=== PATIENT | female | born 1965 | race Two or more races ===

== ENCOUNTER → 2017-01-29 | Day surgery (SDC) | payer MEDICARE, MEDICAID ==
[~2017-01-29] VITALS: Ht 160 cm; Wt 77.2 kg
[~2017-01-29] MED LIST: CYCLOPENTOLATE HCL 1% OPHT SOLN 2 ML BTL ONE; DICY10CA12 PO; DIFL0.0512 RIGHT EYE; EPINEPHrine-Lidocaine/BSS (PF/SF) 4-120 mg/16 mL OPTH SYR RIGHT EYE ONE; HYALURONIDASE/LIDOCAINE/EPINEPHRINE/BUPIVACAINE 6 ML SYR ONE; MECL-62 PO; MEXI150C PO; OMEP20TA PO; PHENYLEPHRINE HCL 10% OPTH SOLN 5 ML BTL ONE; PROPOFOL 200 MG/20 ML AMP IV ONE; PROPOFOL 200 MG/20 ML AMP ONE; SODIUM CHLORID 0.9% 500 ML INJ 500 ML ONE; SOMA350T PO; TETRACAINE 0.5% OPTH SOLN 4 ML BTL RIGHT EYE ONE; TOBRAMYCIN/DEXAMETHASONE OPTH OINT 3.5 GM TUBE RIGHT EYE ONE; TRAM50TA PO; TROPICAMIDE 1% OPHT SOLN 15 ML BTL ONE; VIGA0.5D RIGHT EYE; VISCOAT OPHT IRRIG SOLN 0.75 ML SYRINGE LEFT EYE ONE; VISCOAT OPHT IRRIG SOLN 0.75 ML SYRINGE RIGHT EYE ONE; acetaZOLAMIDE SEQUELS 500 MG SUSTAINED RELEASE CAP ONE
[2017-01-29 06:54] VITALS: BP 101/66; PULSE 69; RESP 16; TEMP 97.8; O2SAT 98
[2017-01-29 07:00] VITALS: PULSE 69
[2017-01-29 08:05] VITALS: PULSE 62
[2017-01-29 09:30] VITALS: TEMP 97.1
[2017-01-29 10:05] VITALS: BP 129/76; PULSE 71; RESP 14; O2SAT 99
--- NOTE | 2017-01-29 10:51 | PD.OP ---
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 She was prepped and draped in the usual sterile fashion for ophthalmic surgery. A wire lid speculum was placed in the right eye. A paracentesis incision was created at the 11 o'clock position on the limbus. Vision blue dye, epishugarcaine, and viscoelastic was injected into the anterior chamber. The main incision was created at the 8 o'clock position on the limbus with a 2.4 mm keratome. A continuous curvilinear capsulorrhexis was made on the anterior lens capsule. Hydrodissection was used to separate the lens from the capsule. Phacoemulsification was used to remove the lens nucleus material. A posterior rent was noted at this time. Anterior vitrectomy was performed. Irrigation and aspiration was used to remove the remaining cortical material. The lens implant ([id number] 17.0 D SN [id number]) was placed in the sulcus. Viscoelastic was removed with irrigation and aspiration. The incisions were irrigated and found to be watertight. 10-0 nylon suture was used to close the main incision. Tobradex ointment, a patch, and shield were placed on the right eye. The patient was sent to PACU in stable condition. Diamox 500 mg CR given after the procedure. Callie Mccartney MD Jan 29, 2017 10:51
--- NOTE | 2017-01-30 14:02 | EKG ---
Date Performed: 01/29/2017 Time Performed: 07:28:44 PTAGE: 51 years EKG: Sinus rhythm . Normal ECG NO PREVIOUS TRACING DOCTOR: Luis Rodríguez Interpretating Date/Time 01/30/2017 13:57:11
== END | disposition home or self-care (01) ==
LOC: PHSDC 06:15
PROVIDERS: ATTEND Ophthalmology
DX: H25.041 Posterior subcapsular polar age-related cataract, right eye (principal); M19.90 Unspecified osteoarthritis, unspecified site; Z96.1 Presence of intraocular lens
CPT/HCPCS: 66984; 67005; 93005; J7040; V2632